=== PATIENT | male | born 1985 ===

== ENCOUNTER 2016-11-20 18:19 | Emergency (ER) | payer SELFPAY ==
--- NOTE | 2016-11-20 18:32 | PD ---
HPI Chief Complaint: Seizure Time Seen by Provider: 18:27 Travel History International Travel<30 days: No Contact w/Intl Traveler<30days: No History of Present Illness HPI 31-year-old male presents to the emergency department via EMS with witnessed seizure at work. 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 He had no loss of bowel or bladder control however. He did sustain a contusion and abrasion to the right lateral scalp. Currently the patient is mildly postictal but knows his name, date of , where he is, and the president. He is requesting that he not be treated and be released. He denies headache, nausea, vomiting, or other symptoms. He has no known drug allergies. Vitals are stable upon arrival. [facility] Past Medical History Medical History: Denies Significant Hx Social History Alcohol Use: Yes Tobacco Use: Yes Substance Use: No Review of Systems Except as stated in HPI: all other systems reviewed are Neg General / Constitutional: No: Fever Eyes: No: Visual changes HENT: No: Headaches Cardiovascular: No: Chest Pain or Discomfort Respiratory: No: Shortness of Breath Gastrointestinal: No: Abdominal Pain Genitourinary: No: Dysuria Musculoskeletal: No: Pain Skin: No Rash Neurologic: No: Weakness Psychiatric: No: Depression Endocrine: No: Polydipsia Hematologic/Lymphatic: No: Easy Bruising Physical Exam Narrative GENERAL: Patient appears in no acute distress. SKIN: Warm and dry. Normal color. Normal turgor. Lips are dry. Patient has superficial abrasion with toothache to the left lateral parietal region. HEAD: Mild superficial abrasion with diffuse headache to the right lateral parietal region. Normocephalic. EYES: Pupils equal and round. No scleral icterus. No injection or drainage. ENT: No nasal bleeding or discharge. Mucous membranes pink and moist. No dental injury. No injury to the tongue. Pharynx clear. Airway is patent. NECK: Trachea midline. No bony tenderness or step-off. Range of motion is full and nontender. CARDIOVASCULAR: Regular rate and rhythm. RESPIRATORY: No accessory muscle use. Clear to auscultation. Breath sounds equal bilaterally. MUSCULOSKELETAL: Extremities without clubbing, cyanosis, or edema. No obvious deformities. NEUROLOGICAL: Awake and alert. No obvious cranial nerve deficits. Motor grossly within normal limits. Five out of 5 muscle strength in the arms and legs. Normal speech. PSYCHIATRIC: Appropriate mood and affect; insight and judgment normal. MDM Medical Decision Making Medical Screen Exam Complete: Yes Emergency Medical Condition: Yes Differential Diagnosis Dehydration. Syncope. Seizure. Head contusion. Abrasion. Narrative Course Patient appears medically stable at time of exam. Patient is requesting to leave AMA. Disposition: 07 AGAINST MEDICAL ADVICE Condition: Stable Mak Cassidy Nov 20, 2016 18:32
== END 2016-11-20 18:57 | disposition left against medical advice (07) ==
LOC: NEPC 18:19
DX: R56.9 Unspecified convulsions (principal); Z72.0 Tobacco use
CPT/HCPCS: 99281

== ENCOUNTER 2016-11-20 18:52 | Emergency (ER) | payer SELFPAY ==
[2016-11-20 18:54] VITALS: BP 173/92; PULSE 83; RESP 17; TEMP 97.4; O2SAT 98
== END 2016-11-20 20:43 | disposition left against medical advice (07) ==
LOC: NED 18:52
DX: Z03.89 Encounter for observation for other suspected diseases and conditions ruled out (principal)
CPT/HCPCS: 99281